=== PATIENT | female | born 1975 | race Caucasian/White ===

== ENCOUNTER 2016-06-28 19:05 | Emergency (ER) | payer SELFPAY ==
[2016-06-28 20:17] LABS: Mean Corpuscular HGB Conc 30 % (30-34); Platelet Count 306 K/mm3 (140-440); Red Blood Count 5.06 M/mm3 (3.65-5.03); White Blood Count 16.5 K/mm3 (4.5-11.0)
[2016-06-28 20:19] LABS: Hematocrit 31.4 % (30.3-42.9); Hemoglobin 9.5 gm/dl (10.1-14.3); Mean Corpuscular Volume 62 fl (79-97)
[2016-06-28 20:20] LABS: Mean Corpuscular Hemoglobin 19 pg (28-32); Red Cell Distribution Width 21.5 % (13.2-15.2)
[2016-06-28 20:24] LABS: Anion Gap 19 mmol/L; Blood Urea Nitrogen 9 mg/dL (7-17); Calcium 8.9 mg/dL (8.4-10.2); Carbon Dioxide 25 mmol/L (22-30); Chloride 91.3 mmol/L (98-107); Glucose 127 mg/dL (65-100); Sodium 131 mmol/L (137-145)
[2016-06-28 21:12] LABS: Anisocytosis 1+; Basophils % (Manual) 0 % (0.0-1.8); Blastocytes % (Manual) 0 %; Eosinophils % (Manual) 0 % (0.0-4.3); Hypochromasia 2+; Ovalocytes 1+
[2016-06-28 21:13] LABS: Diff Status Complete; Elliptocytes Few; Large Platelets 1+; Platelet Estimate Consistent w Auto
[2016-06-28] MEDS ORDERED: NACL 0.9% 500 ML 500 ML IV ONE (21:24)
[2016-06-28 22:11] LABS: INR 1.56 (0.87-1.13)
[2016-06-28 22:50] LABS: Bilirubin,Urine NEG (Negative); Blood,Urine NEG (Negative); Ketones,Urine TR mg/dL (Negative); Leukocyte Esterase,Urine NEG (Negative); Mucus,Urine 3+ /HPF; Nitrite,Urine NEG (Negative); Urobilinogen,Urine < 2.0 mg/dL (<2.0)
[2016-06-29] MEDS ORDERED: NACL 0.9% 1000 ML 1,000 ML IV ONE (01:47)
[2016-06-29] MEDS ORDERED: TORADOL IV ONE (02:41)
[2016-06-29] MEDS ORDERED: DILAUDID IV ONE ×3 (02:45→07:53)
[2016-06-29] MEDS ORDERED: ZOFRAN IV ONE (02:45)
[2016-06-29] MEDS ORDERED: NACL ONE (03:17)
[2016-06-29] MEDS ORDERED: CLEOCIN 600 MG/50 mL 600 MG/50 ML BAG IV ONE (04:02)
--- NOTE | 2016-06-29 04:11 | Emergency Department Report ---
ED ENT HPI - General Chief complaint: Sore Throat Stated complaint: SWOLLEN CHEEK (SURGERY) Time Seen by Provider: 06/29/16 01:46 Source: patient Mode of arrival: Ambulatory Limitations: Language Barrier - History of Present Illness Initial comments: 40-year-old female with a past medical history diabetes, anemia, and recent peritonsillar abscess presents to the hospital complains of swelling to left side of the jaw. Patient apparently had a right-sided jaw swelling and was admitted to [facility] for over a week and was just discharged on the . Patient states she had surgery on her right side of her jaw. Per discharge instructions patient was diagnosed with peritonsillar abscess and had incision and drainage, hyperglycemia, and nonspecific anemia. Patient was discharged on ibuprofen, Levaquin, and Synthroid. Patient has continued to have pain and swelling since the surgery. Now the swelling is on the opposite side of the initial surgery. Patient has not been able to eat or drink much due to swelling and pain. I suspect pt has a submandibular abscess instead of peritonsilar abscess given area of incision and drainage - Related Data Allergies Allergy/AdvReac Type Severity Reaction Status Date / Time No Known Allergies Allergy Verified 06/28/16 19:30 ED Dental HPI - General Chief complaint: Sore Throat Stated complaint: SWOLLEN CHEEK (SURGERY) Time Seen by Provider: 06/29/16 01:46 Source: patient Mode of arrival: Ambulatory Limitations: Language Barrier - Related Data Allergies Allergy/AdvReac Type Severity Reaction Status Date / Time No Known Allergies Allergy Verified 06/28/16 19:30 ED Review of Systems ROS: Stated complaint: SWOLLEN CHEEK (SURGERY) Other details as noted in HPI Comment: All other systems reviewed and negative Other: Constitutional: No fevers chills Eyes: No eye pain visual changes or discharge ENT: As per HPI Neck: Denies pain Respiratory: Denies cough wheezing shortness of breath Cardiovascular: Denies chest pain, palpitations, syncope GI: Denies abdominal pain, nausea, vomiting, diarrhea : Denies dysuria Musculoskeletal: Denies back pain Skin: Denies rash, lesions, erythema Neurologic: Denies headache, numbness, weakness Psychiatric: Denies suicidal ideation, hallucinations ED Past Medical Hx - Past Medical History Previous Medical History?: Yes Hx Diabetes: Yes Additional medical history: Microcytic anemia, hypothyroidism - Surgical History Past Surgical History?: Yes Additional Surgical History: tonsil abcess 06/25/16 - Social History Smoking Status: Never Smoker Substance Use Type: None ED Physical Exam - General Limitations: Language Barrier - Other Other exam information: General: No limitations, patient is alert in no acute distress Head exam: Atraumatic, normocephalic Eyes exam: Normal appearance, pupils equal reactive to light, extraocular movements intact ENT: Trismus and unable to open jaw completely for posterior pharynx review, incision noted at the right submandibularl area with minimal drainage. There is now swelling and tenderness to the left submental area Neck exam: Normal inspection, full range of motion, no meningismus Respiratory exam: Clear to auscultation bilateral, no wheezes, rales, crackles Cardiovascular: Normal rate and rhythm, normal heart sounds Abdomen: Soft, nondistended, and nontender, with normal bowel sounds, no rebound, or guarding Extremity: Full range of motion normal inspection no deformity Back: Normal Inspection, full range of motion, no tenderness Neurologic: Alert, oriented x3, cranial nerves intact, no motor or sensory deficit Psychiatric: normal affect, normal mood Skin: Warm, dry, intact ED Course Vital Signs 06/28/16 06/29/16 06/29/16 19:30 03:14 05:22 Temperature 99 F Pulse Rate 94 H 79 Respiratory 20 16 16 Rate Blood Pressure 110/73 124/68 [Right] O2 Sat by Pulse 100 100 Oximetry - Reevaluation(s) Reevaluation #1: 06/29/16 04:10 Normal saline, Dilaudid, Toradol, Zofran, and clindamycin ordered - Consultations Consultation #1: 06/29/16 06:00 5:06 am case d/w with transfer service. ENT paged by ED attending Dr Edmonds and has not returned call 1 hour later. They will not accept pt since they can not verify that ENT is available. They are unsure if there is ENT available at another facility 06/29/16 06:24 Call back at this time from ENT attending at [place] Dr Lagunas. Pt accepted for transfer to ED. [facility] also has omfs coverage as per transfer service. 06/29/16 06:40 case d/w With ed attending at [place]. Accepting MD dR [facility] ED Medical Decision Making - Lab Data Result diagrams: 06/28/16 19:53 06/28/16 19:53 Lab Results 06/28/16 06/28/16 06/28/16 Range/Units 19:53 19:53 21:36 WBC 16.5 H (4.5-11.0) K/mm3 RBC 5.06 H (3.65-5.03) M/mm3 Hgb 9.5 L (10.1-14.3) gm/dl Hct 31.4 (30.3-42.9) % MCV 62 L (79-97) fl MCH 19 L (28-32) pg MCHC 30 (30-34) % RDW 21.5 H (13.2-15.2) % Plt Count 306 (140-440) K/mm3 Add Manual Diff Complete Total Counted 100 Seg Neutrophils % Bobbin Stripper Seg Neuts % (Manual) 95.0 H (40.0-70.0) % Band Neutrophils % 0 % Lymphocytes % (Manual) 3.0 L (13.4-35.0) % Reactive Lymphs % (Man) 0 % Monocytes % (Manual) 2.0 (0.0-7.3) % Eosinophils % (Manual) 0 (0.0-4.3) % Basophils % (Manual) 0 (0.0-1.8) % Metamyelocytes % 0 % Myelocytes % 0 % Promyelocytes % 0 % Blast Cells % 0 % Nucleated RBC % Not Reportable Seg Neutrophils # Man 15.7 H (1.8-7.7) K/mm3 Band Neutrophils # 0.0 K/mm3 Lymphocytes # (Manual) 0.5 L (1.2-5.4) K/mm3 Abs React Lymphs (Man) 0.0 K/mm3 Monocytes # (Manual) 0.3 (0.0-0.8) K/mm3 Eosinophils # (Manual) 0.0 (0.0-0.4) K/mm3 Basophils # (Manual) 0.0 (0.0-0.1) K/mm3 Metamyelocytes # 0.0 K/mm3 Myelocytes # 0.0 K/mm3 Promyelocytes # 0.0 K/mm3 Blast Cells # 0.0 K/mm3 Pathologist Review Cancelled WBC Morphology Not Reportable Hypersegmented Neuts Not Reportable Hyposegmented Neuts Not Reportable Hypogranular Neuts Not Reportable Smudge Cells Not Reportable Toxic Granulation Not Reportable Toxic Vacuolation Not Reportable Dohle Bodies Not Reportable Pelger-Huet Anomaly Not Reportable Indigo Rods Not Reportable Platelet Estimate Consistent w auto Clumped Platelets Not Reportable Plt Clumps, EDTA Not Reportable Large Platelets 1+ Giant Platelets Not Reportable Platelet Satelliting Not Reportable Plt Morphology Comment Not Reportable RBC Morphology Not Reportable Dimorphic RBCs Not Reportable Polychromasia Not Reportable Hypochromasia 2+ Poikilocytosis Not Reportable Anisocytosis 1+ Microcytosis Not Reportable Macrocytosis Not Reportable Spherocytes Not Reportable Pappenheimer Bodies Not Reportable Sickle Cells Not Reportable Target Cells Not Reportable Tear Drop Cells Not Reportable Ovalocytes 1+ Helmet Cells Not Reportable Sr[place] Bodies Not Reportable [place] Rings Not Reportable Anne Cells Not Reportable Bite Cells Not Reportable Crenated Cell Not Reportable Elliptocytes Few Acanthocytes (Spur) Not Reportable Rouleaux Not Reportable Hemoglobin C Crystals Not Reportable Schistocytes Not Reportable Malaria parasites Not Reportable Jos Bodies Not Reportable Hem Pathologist Commnt No PT 18.6 H (12.2-14.9) Sec. INR 1.56 H (0.87-1.13) VBG pH (7.320-7.420) Sodium 131 L (137-145) mmol/L Potassium 4.0 (3.6-5.0) mmol/L Chloride 91.3 L (98-107) mmol/L Carbon Dioxide 25 (22-30) mmol/L Anion Gap 19 mmol/L BUN 9 (7-17) mg/dL Creatinine 0.6 L (0.7-1.2) mg/dL Estimated GFR > 60 ml/min BUN/Creatinine Ratio 15.00 % Glucose 127 H (65-100) mg/dL Lactic Acid (0.7-2.0) mmol/L Calcium 8.9 (8.4-10.2) mg/dL Urine Color (Yellow) Urine Turbidity (Clear) Urine pH (5.0-7.0) Urine Protein (Negative) mg/dL Urine Glucose (UA) (Negative) mg/dL Urine Ketones (Negative) mg/dL Urine Blood (Negative) Urine Nitrite (Negative) Urine Bilirubin (Negative) Urine Urobilinogen (<2.0) mg/dL Ur Leukocyte Esterase (Negative) Urine WBC (Auto) (0.0-6.0) /HPF Urine RBC (Auto) (0.0-6.0) /HPF U Epithel Cells (Auto) (0-13.0) /HPF Urine Mucus /HPF Urine HCG, Qual (Negative) 06/28/16 06/28/16 06/28/16 Range/Units 21:36 21:36 Unknown WBC (4.5-11.0) K/mm3 RBC (3.65-5.03) M/mm3 Hgb (10.1-14.3) gm/dl Hct (30.3-42.9) % MCV (79-97) fl MCH (28-32) pg MCHC (30-34) % RDW (13.2-15.2) % Plt Count (140-440) K/mm3 Add Manual Diff Total Counted Seg Neutrophils % Seg Neuts % (Manual) (40.0-70.0) % Band Neutrophils % % Lymphocytes % (Manual) (13.4-35.0) % Reactive Lymphs % (Man) % Monocytes % (Manual) (0.0-7.3) % Eosinophils % (Manual) (0.0-4.3) % Basophils % (Manual) (0.0-1.8) % Metamyelocytes % % Myelocytes % % Promyelocytes % % Blast Cells % % Nucleated RBC % Seg Neutrophils # Man (1.8-7.7) K/mm3 Band Neutrophils # K/mm3 Lymphocytes # (Manual) (1.2-5.4) K/mm3 Abs React Lymphs (Man) K/mm3 Monocytes # (Manual) (0.0-0.8) K/mm3 Eosinophils # (Manual) (0.0-0.4) K/mm3 Basophils # (Manual) (0.0-0.1) K/mm3 Metamyelocytes # K/mm3 Myelocytes # K/mm3 Promyelocytes # K/mm3 Blast Cells # K/mm3 Pathologist Review WBC Morphology Hypersegmented Neuts Hyposegmented Neuts Hypogranular Neuts Smudge Cells Toxic Granulation Toxic Vacuolation Dohle Bodies Pelger-Huet Anomaly Indigo Rods Platelet Estimate Clumped Platelets Plt Clumps, EDTA Large Platelets Giant Platelets Platelet Satelliting Plt Morphology Comment RBC Morphology Dimorphic RBCs Polychromasia Hypochromasia Poikilocytosis Anisocytosis Microcytosis Macrocytosis Spherocytes Pappenheimer Bodies Sickle Cells Target Cells Tear Drop Cells Ovalocytes Helmet Cells Sr[place] Bodies [place] Rings Sunol Cells Bite Cells Crenated Cell Elliptocytes Acanthocytes (Spur) Rouleaux Hemoglobin C Crystals Schistocytes Malaria parasites Jos Bodies Hem Pathologist Commnt PT (12.2-14.9) Sec. INR (0.87-1.13) VBG pH 7.358 (7.320-7.420) Sodium (137-145) mmol/L Potassium (3.6-5.0) mmol/L Chloride (98-107) mmol/L Carbon Dioxide (22-30) mmol/L Anion Gap mmol/L BUN (7-17) mg/dL Creatinine (0.7-1.2) mg/dL Estimated GFR ml/min BUN/Creatinine Ratio % Glucose (65-100) mg/dL Lactic Acid 1.10 (0.7-2.0) mmol/L Calcium (8.4-10.2) mg/dL Urine Color Marlen (Yellow) Urine Turbidity Slightly-cloudy (Clear) Urine pH 5.0 (5.0-7.0) Urine Protein 100 mg/dl (Negative) mg/dL Urine Glucose (UA) Neg (Negative) mg/dL Urine Ketones Tr (Negative) mg/dL Urine Blood Neg (Negative) Urine Nitrite Neg (Negative) Urine Bilirubin Neg (Negative) Urine Urobilinogen < 2.0 (<2.0) mg/dL Ur Leukocyte Esterase Neg (Negative) Urine WBC (Auto) 5.0 (0.0-6.0) /HPF Urine RBC (Auto) 5.0 (0.0-6.0) /HPF U Epithel Cells (Auto) 26.0 H (0-13.0) /HPF Urine Mucus 3+ /HPF Urine HCG, Qual (Negative) 06/29/16 06/29/16 Range/Units 00:31 03:30 WBC (4.5-11.0) K/mm3 RBC (3.65-5.03) M/mm3 Hgb (10.1-14.3) gm/dl Hct (30.3-42.9) % MCV (79-97) fl MCH (28-32) pg MCHC (30-34) % RDW (13.2-15.2) % Plt Count (140-440) K/mm3 Add Manual Diff Total Counted Seg Neutrophils % Seg Neuts % (Manual) (40.0-70.0) % Band Neutrophils % % Lymphocytes % (Manual) (13.4-35.0) % Reactive Lymphs % (Man) % Monocytes % (Manual) (0.0-7.3) % Eosinophils % (Manual) (0.0-4.3) % Basophils % (Manual) (0.0-1.8) % Metamyelocytes % % Myelocytes % % Promyelocytes % % Blast Cells % % Nucleated RBC % Seg Neutrophils # Man (1.8-7.7) K/mm3 Band Neutrophils # K/mm3 Lymphocytes # (Manual) (1.2-5.4) K/mm3 Abs React Lymphs (Man) K/mm3 Monocytes # (Manual) (0.0-0.8) K/mm3 Eosinophils # (Manual) (0.0-0.4) K/mm3 Basophils # (Manual) (0.0-0.1) K/mm3 Metamyelocytes # K/mm3 Myelocytes # K/mm3 Promyelocytes # K/mm3 Blast Cells # K/mm3 Pathologist Review WBC Morphology Hypersegmented Neuts Hyposegmented Neuts Hypogranular Neuts Smudge Cells Toxic Granulation Toxic Vacuolation Dohle Bodies Pelger-Huet Anomaly Indigo Rods Platelet Estimate Clumped Platelets Plt Clumps, EDTA Large Platelets Giant Platelets Platelet Satelliting Plt Morphology Comment RBC Morphology Dimorphic RBCs Polychromasia Hypochromasia Poikilocytosis Anisocytosis Microcytosis Macrocytosis Spherocytes Pappenheimer Bodies Sickle Cells Target Cells Tear Drop Cells Ovalocytes Helmet Cells Sr[place] Bodies [place] Rings Anne Cells Bite Cells Crenated Cell Elliptocytes Acanthocytes (Spur) Rouleaux Hemoglobin C Crystals Schistocytes Malaria parasites Jos Bodies Hem Pathologist Commnt PT (12.2-14.9) Sec. INR (0.87-1.13) VBG pH (7.320-7.420) Sodium (137-145) mmol/L Potassium (3.6-5.0) mmol/L Chloride (98-107) mmol/L Carbon Dioxide (22-30) mmol/L Anion Gap mmol/L BUN (7-17) mg/dL Creatinine (0.7-1.2) mg/dL Estimated GFR ml/min BUN/Creatinine Ratio % Glucose (65-100) mg/dL Lactic Acid 1.10 (0.7-2.0) mmol/L Calcium (8.4-10.2) mg/dL Urine Color (Yellow) Urine Turbidity (Clear) Urine pH (5.0-7.0) Urine Protein (Negative) mg/dL Urine Glucose (UA) (Negative) mg/dL Urine Ketones (Negative) mg/dL Urine Blood (Negative) Urine Nitrite (Negative) Urine Bilirubin (Negative) Urine Urobilinogen (<2.0) mg/dL Ur Leukocyte Esterase (Negative) Urine WBC (Auto) (0.0-6.0) /HPF Urine RBC (Auto) (0.0-6.0) /HPF U Epithel Cells (Auto) (0-13.0) /HPF Urine Mucus /HPF Urine HCG, Qual Negative (Negative) - Radiology Data Radiology results: report reviewed (CT neck IV contrast: Right submandibular abscess 2.1 x 5.5 x 4 cm suspicious for abscess. Left submandibular gland is enlarged suggesting sialoadenitis with left submandibular lymphadenopathy. There is subcutaneous induration of the left side of the neck suggesting cellulitis) - Medical Decision Making Patient presents to the hospital for IV antibiotics and incision and drainage procedures. We do not have ENT or OMFS available. Patient was just seen and discharged at [facility]. Patient has been accepted to transfer to [facility] ER. - Differential Diagnosis peritonsillar abscess, dental/ submandibular abscess, dehydration Critical Care Time: No Critical care attestation.: If time is entered above; I have spent that time in minutes in the direct care of this critically ill patient, excluding procedure time. ED Disposition Clinical Impression: Submandibular abscess, Sialoadenitis of submandibular gland, Cellulitis, neck, Anemia Disposition: DC/TX ANOTHER TYPE HEALTHCARE Is pt being admited?: No Condition: Stable Time of Disposition: 06:28 ([facility])
--- NOTE | 2016-06-29 04:56 | Cat Scan Report ---
FINAL REPORT PROCEDURE: CT NECK W CON TECHNIQUE: Computerized axial tomography of the soft tissue neck was performed following the IV injection of iodinated nonionic contrast. HISTORY: left mandibular swelling, recent right sided surgery COMPARISON: No prior studies are available for comparison. FINDINGS: There is a subcutaneous loculated collection of fluid and air in the right submandibular region extending to the neck at the level of the thyroid gland measuring 2.1 x 5.5 x 4 centimeters suspicious for abscess. The left submandibular gland is enlarged. There is left submandibular lymphadenopathy. There is subcutaneous induration of the left side of the neck suggesting cellulitis. Skull and scalp: Normal. Paranasal sinuses: Normal. Nasopharynx: Normal . Oral cavity: Normal . Epiglottis/vallecula: Normal . Larynx/pyriform sinuses: Normal . Thyroid gland: Normal . Upper thorax: Normal . IMPRESSION: There is a subcutaneous loculated collection of fluid and air in the right submandibular region extending to the neck at the level of the thyroid gland measuring 2.1 x 5.5 x 4 centimeters suspicious for abscess. The left submandibular gland is enlarged suggesting sialoadenitis. There is left submandibular lymphadenopathy. There is subcutaneous induration of the left side of the neck suggesting cellulitis. There is no specific evidence of neoplasm. There is no airway compromise.
[2016-06-29 07:53] VITALS: BP 117/60
--- NOTE | 2016-06-29 07:53 | Emergency Department Report ---
Blank Doc - Documentation Documentation: I was signed out this patient by in order to help facilitate transfer to another facility as the patient will need either ENT or OMFS for reaccumulation of right submandibular abscess and left submandibular cellulitis. Attempted to transfer to [facility] but had not yet heard back from any of the attending physicians. I spoke with [facility] and the patient was accepted to transfer to the emergency department by Dr. Sommers, [facility], for evaluation and if necessary they will admit the patient. Patient is being set up for ground transportation. Chart and imaging will be sent with the patient. Patient appears stable.
== END 2016-06-29 09:40 | disposition other institution (70) ==
LOC: ED 19:05
DX: K12.2 Cellulitis and abscess of mouth (principal); K11.20 Sialoadenitis, unspecified; L03.221 Cellulitis of neck; D64.9 Anemia, unspecified; E11.9 Type 2 diabetes mellitus without complications; E03.9 Hypothyroidism, unspecified
CPT/HCPCS: 36415; 70491; 80048; 81001; 81025; 82140; 82805; 85007; 85025; 85610; 87040; 87086; 96361; 96365; 96375; 96376; 99285; J1170; J1885; J2405; J7030; Q9967